=== PATIENT | female | born 2000 | race African-American/Black ===

== ENCOUNTER 2022-05-06 21:57 | Emergency (ER) | payer OTHER, SELFPAY ==
[2022-05-07] MEDS ORDERED: Boostrix 0.5 ML (Tdap) VIAL ONE (01:25)
== END 2022-05-07 01:56 | disposition home or self-care (01) ==
LOC: CSHERS 21:57
DX: S61.011A Laceration without foreign body of right thumb without damage to nail, initial encounter (principal); Z23 Encounter for immunization; W27.5XXA Contact with paper-cutter, initial encounter
CPT/HCPCS: 12001; 90471; 90715